=== PATIENT | male | born 1955 | race Caucasian/White ===

== ENCOUNTER 2017-05-03 06:55 | Emergency (ER) | payer OTHER ==
--- NOTE | 2017-05-03 19:19 | ER ---
ADMIT: 05/03/2017 RM/LOC: ER [facility] MR#: [id number] [address] [place] [address] Emergency Room Report SEX: M AGE: 62 : 1955 DATE: 05/03/2017 ADDENDUM: 62-year-old white male, coming with chronic diarrhea. I refer you to Dr. Chowdary's T-sheet. At this time, he had worked him up, did a CT of his abdomen. Nothing really showing up at this time. His CBC and chemistry were normal. Set him up for stool cultures with wbc's, rbc's, stool fat, C. diff, results go to Dr. Barrett. He is to see Dr. Barrett this week. He takes Metamucil which he continues to take and then needs to follow up with and try some Imodium [id number], but see Dr. Barrett later in the week. CONDITION ON DISCHARGE: Good. Anil Turner MD/ андрей JOB #: [id number] CC: Bon Brown MD, Attending Physician Petey Barrett MD, Family Physician
== END 2017-05-03 09:55 | disposition home or self-care (01) ==
LOC: ER 06:55
DX: R19.7 Diarrhea, unspecified (principal); R10.9 Unspecified abdominal pain; I10 Essential (primary) hypertension; Z88.0 Allergy status to penicillin; Z79.82 Long term (current) use of aspirin; Z79.899 Other long term (current) drug therapy

== ENCOUNTER 2017-05-05 01:47 | Emergency (ER) | payer OTHER ==
--- NOTE | 2017-05-05 06:27 | ER ---
ADMIT: 05/05/2017 RM/LOC: ER [facility] MR#: [id number] [address] [place] [address] Emergency Room Report SEX: M AGE: 62 : 1955 DATE: 05/05/2017 The patient is a 62-year-old male with history of hypertension, C. difficile enterocolitis, started on metronidazole on Thursday. States since being started on metronidazole, he feels confused out of sorts. Does admit to three Imodium over the past two days. No illicit drugs or alcohol. Exam remarkable for nontoxic, afebrile, obviously anxious male. Able to answer orientation questions. Limited insight into anxiety. Treated with Xanax 0.25 mg sublingual with improvement. Home with Xanax 0.25 mg sublingual t.i.d. p.r.n. #20. Follow up Dr. Barrett as scheduled. Continue metronidazole. Bon Brown MD/ андрей JOB #: [id number] CC: Bon Brown MD, Attending Physician Petey Barrett MD, Family Physician
== END 2017-05-05 02:40 | disposition home or self-care (01) ==
LOC: ER 01:47
DX: F41.9 Anxiety disorder, unspecified (principal); A04.7 Enterocolitis due to Clostridium difficile; I10 Essential (primary) hypertension; Z95.0 Presence of cardiac pacemaker; Z79.899 Other long term (current) drug therapy